=== PATIENT | female | born 1970 | race Caucasian/White ===

== ENCOUNTER → 2016-08-01 | Outpatient (CLI) | payer BC ==
--- NOTE | 2016-08-01 16:20 | RADRPT ---
PROCEDURE: XR left knee. CLINICAL INDICATION: Knee pain TECHNIQUE: 3 views are available for review. COMPARISON: None available FINDINGS: There is calcific enthesopathy involving the anterior superior aspect of the patella. The osseous structures are normal in mineralization, architecture and alignment. No fractures are i dentified. No osseous lesions are identified. The joints are unremarkable. The soft tissues are u nremarkable. IMPRESSION: Calcific enthesopathy involving the anterior superior aspect of the patella. Otherwise unremarkable examination RPTAT: [facility] .Jovanny Augustin MD, MD Date Time Electronically viewed and signed by .Jovanny Augustin MD, MD on 08/01/2016 16:19 .B/
--- NOTE | 2016-08-01 18:22 | HKNOTE ---
DATE OF SERVICE: 08/01/2016 MAIN COMPLAINT: Pain in the left knee. HISTORY OF MAIN COMPLAINT: The patient is a 46-year-old female who complains of pain in her left kn ee which has been present for many years. There has not been any history of injury to the knee. The pain has become very much worse in the past year. It has at times been quite incapacitating. T he symptoms have also changed somewhat in that she only had pain before without any other symptoms. PRESENT COMPLAINTS: The pain in the knee is mostly over the medial side of the knee. She is not bains re if the knee swells, but it occasionally feels unstable. On bad days, her pain is so bad that she does not go to work and stays in bed all day. On good days, she can walk around without any pain. On bad days, she limps all the time. She then gets pain with every step. She does not use any wal leandra aids. She has applied Bengay to the knee. She is not taking any medications for the knee. She limps on s tairs, and she has a particularly bad time going up stairs. SPORTING ACTIVITIES: The patient enjoys yoga, but she is not able to do it anymore because of her k nee. She also used to enjoy rollerskating a few years ago. PAST ORTHOPEDIC HISTORY: PREVIOUS ORTHOPEDIC OPERATIONS: None. PRIOR CORTISONE INTAKE: None. ALCOHOL INTAKE: One alcoholic beverage a month. OTHER JOINT PROBLEMS: None. BLOOD TESTS FOR ARTHRITIS: None. PRIOR INJURIES TO HIPS OR KNEES: None. 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 PAST MEDICAL HISTORY: 1. Hypothyroid. 2. Polycystic ovarian syndrome. 3. Anxiety attacks. PAST SURGICAL HISTORY: Rhinoplasty. MEDICATION ALLERGIES: NONE. FAMILY HISTORY: Father age 70, alive and well, has diabetes. Mother age 65, alive and well. SYSTEMS REVIEW: Varicose veins, gait disturbance. The patient states she has a cardiac murmur. Ot herwise negative. HABITS: The patient does not smoke. She drinks 1 alcoholic beverage a month. PHYSICAL EXAMINATION: GENERAL: A fit-looking, youthful 46-year-old female, somewhat overweight. VITAL SIGNS: Height 5 feet 8 inches. Weight 220 pounds. Blood pressure 155/65, temperature 98.5. HIPS: Both hips have a full range of motion without pain. LEFT KNEE: The left knee shows normal alignment. Active and passive extension is 0 degrees. Active and passive flexion is 135 degrees. The medial and lateral collateral ligaments and cruciate ligamen ts are intact. Bryon test is negative. Marked tenderness over the medial joint line. 1+ effusion. 1+ crepitus under the patella. There is no scarring or cysts. The patella tracks normally. There i s no tenderness on the articular surface of the patella or in the patellar groove. The Q angle is no rmal. IMAGING: Plain x-rays of the left knee obtained today at the [facility] were rev iewed (3 views). These are entirely normal except for patellar tilt. The patella sits asymmetrical ly in its groove and is tilted to the lateral side. DISCUSSION: A 46-year-old female who complains of pain and instability of her left knee which has b een present for about a year without any history of injury. She has had problems with her knee for many years before, even as a child. Physical examination yields 1+ effusion and tenderness over the medial joint line as well as crepitus under the patella. DIAGNOSES: 1. Possible internal derangement of the left knee 2. Maltracking patella of the left knee. MANAGEMENT: The patient being sent for an MRI scan of the left knee. She will be called with the kb hook. Dictated By: EMELYN VAZQUEZ/PAOLA Conf#: [id number] DID#: [id number]
== END | disposition home or self-care (01) ==
LOC: HKI 16:54
DX: M25.562 Pain in left knee (principal)
CPT/HCPCS: 73562; G0463